=== PATIENT | female | born 1935 ===

== ENCOUNTER 2017-12-20 13:46 | Emergency (ER) | payer MEDICARE ==
[~2017-12-20] VITALS: Ht 152.4 cm; Wt 54.4 kg
[2017-12-20 13:55] VITALS: Ht 152.4 cm; Wt 54.4 kg
[2017-12-20 16:55] VITALS: BP 137/71
== END 2017-12-20 16:55 | disposition home or self-care (01) ==
LOC: ED 13:46
DX: F32.9 Major depressive disorder, single episode, unspecified (principal); I10 Essential (primary) hypertension; J44.9 Chronic obstructive pulmonary disease, unspecified; Z88.5 Allergy status to narcotic agent; Z88.6 Allergy status to analgesic agent; Z88.8 Allergy status to other drugs, medicaments and biological substances